=== PATIENT | female | born 1930 | race Caucasian/White ===

== ENCOUNTER 2017-06-24 15:56 | Inpatient (IN) | payer MEDICARE, OTHER ==
[~2017-06-24] VITALS: Ht 167.6 cm; Wt 75.8 kg
[2017-06-24] MEDS ORDERED: HCTZ 25MG TAB25 MG PO (16:35)
[2017-06-24] MEDS ORDERED: PLENDIL 5MG TAB5 MG PO (16:35)
[2017-06-24] MEDS ORDERED: LEXAPRO20 MG PO (16:36)
[2017-06-24] MEDS ORDERED: VITAMINC1000TA PO (16:38)
[2017-06-24] MEDS ORDERED: NATURAL E400 IU PO (16:39)
[2017-06-24] MEDS ORDERED: CALCIUM 600MG+D1 TAB PO (16:39)
[2017-06-24 16:43] LABS: BASO # 0.1 (0.0-0.2); BASO % 0.6 % (0.0-2.0); EOS # 0.1 (0.0-0.7); EOS % 0.7 % (0-4.0); GRAN # 8.9 (1.4-6.5); GRAN % 75.6 % (42.2-75.2); HEMATOCRIT 39.5 % (37.0-47.0); HEMOGLOBIN 13.2 g/dl (12.5-16.0); LYMPH # 2.1 (1.2-3.4); LYMPH % 17.7 % (20.0-51.0); MEAN CELL VOLUME 96 fl (80.0-100.0); MEAN CORPUSCULAR HEMOGLOBIN 32 pg (27.0-31.0); MEAN CORPUSCULAR HGB CONC 33 g/dl (33.0-37.0); MEAN PLATELET VOLUME 8.6 fl (7.4-10.4); MONO # 0.6 (0.1-0.6); MONO % 4.8 % (1.7-9.3); PLATELET COUNT 258 K/mm3 (130-400); RED BLOOD COUNT 4.13 M/mm3 (4.10-5.30); WHITE BLOOD COUNT 11.8 K/mm3 (4.8-10.8)
[2017-06-24 16:55] LABS: ADJUSTED CALCIUM 9.5 mg/dL (8.4-10.2); BILIRUBIN,TOTAL 0.4 mg/dL (0.0-1.0); CALCIUM 9.5 mg/dL (8.4-10.2); CREATININE, serum 0.65 mg/dL (0.52-1.25); INR 1.1 (0.8-3.0); POTASSIUM 4.4 mmol/L (3.4-5.0); PROTHROMBIN TIME 11.7 SECONDS (9.7-12.8); TOTAL PROTEIN 7.1 gm/dL (6.4-8.2)
[2017-06-24] MEDS ORDERED: MYSOLINE 5050 MG/TAB PO (17:42)
[2017-06-24] MEDS ORDERED: TOPROL XL 25MG25 MG PO (17:42)
[2017-06-24] MEDS ORDERED: LUTEIN20 M1 (17:43)
[2017-06-24] MEDS ORDERED: PHARMASSURE ZIN50 MG PO (17:44)
[2017-06-24] MEDS ORDERED: EPA FISH OIL1 SGL PO (17:44)
[2017-06-24 17:58] LABS: PH 5 (5-8); SQUAMOUS EPITHELIAL None Seen /hpf; URINE APPEARANCE Hazy; URINE BACTERIA Rare /hpf; URINE BILIRUBIN Negative (NEGATIVE); URINE BLOOD Negative (NEGATIVE); URINE COLOR Yellow; URINE GLUCOSE Negative (NEGATIVE); URINE KETONE Negative (NEGATIVE); URINE UROBILINOGEN Negative (NEGATIVE)
[2017-06-24 18:21] VITALS: BP 142/72; PULSE 50
[2017-06-24 20:00] VITALS: BP 100/64; PULSE 52; TEMP 97.4
[2017-06-25] VITALS (10 sets, daily range): BP systolic 101–128; BP diastolic 46–61; PULSE 51–66; TEMP 97.4–98.3
[2017-06-26 06:47] LABS: CALCIUM 8.7 mg/dL (8.4-10.2); CREATININE, serum 1.35 mg/dL (0.52-1.25); POTASSIUM 4.8 mmol/L (3.4-5.0)
[2017-06-26 06:50] LABS: HEMOGLOBIN 9.7 g/dl (12.5-16.0)
[2017-06-26 09:51] VITALS: BP 131/56; PULSE 87; TEMP 98.2
[2017-06-26 13:36] VITALS: BP 113/46; BP 13/46; PULSE 70; TEMP 97.6
[2017-06-26 17:42] VITALS: BP 142/64; PULSE 74; TEMP 98.1
[2017-06-26 21:29] VITALS: BP 140/54; PULSE 92; TEMP 97.8
[2017-06-27 06:20] VITALS: BP 114/53; PULSE 65; TEMP 97.9
[2017-06-27 14:25] VITALS: BP 114/53; PULSE 71; TEMP 98.2
[2017-06-27 17:28] VITALS: BP 177/65; PULSE 73; TEMP 97.6
[2017-06-27 19:37] VITALS: BP 148/62; PULSE 82; TEMP 98.3
[2017-06-28 02:54] VITALS: BP 138/71; PULSE 68; TEMP 98.6
[2017-06-28 10:14] VITALS: BP 131/57; PULSE 84; TEMP 97.6
[2017-06-28 11:15] LABS: CREATININE, serum 0.73 mg/dL (0.52-1.25); POTASSIUM 4.3 mmol/L (3.4-5.0)
[2017-06-28 11:27] LABS: PH 6 (5-8); SQUAMOUS EPITHELIAL 0-2 /hpf; URINE APPEARANCE Clear; URINE BACTERIA None Seen /hpf; URINE BILIRUBIN Negative (NEGATIVE); URINE BLOOD Negative (NEGATIVE); URINE COLOR Yellow; URINE GLUCOSE Negative (NEGATIVE); URINE KETONE Negative (NEGATIVE); URINE RBC 0-2 /hpf; URINE UROBILINOGEN Negative (NEGATIVE); URINE WBC 0-2 /hpf
[2017-06-28 13:55] VITALS: BP 133/43; PULSE 62; TEMP 97.9
[2017-06-28 17:04] VITALS: BP 159/56; PULSE 80; TEMP 98.2
[2017-06-28] MEDS ORDERED: AMBIEN 5MG TABLE5 MG PO (20:41)
[2017-06-28] MEDS ORDERED: NORCO 325 MG-51 TAB PO (20:42)
[2017-06-28] MEDS ORDERED: THERAGRAN TAB1 UDTAB PO (20:44)
[2017-06-28] MEDS ORDERED: VALIUM 2MG T2 MG/TAB PO (20:45)
[2017-06-28] MEDS ORDERED: ZOFRAN 4MG T4 MG/TAB PO (20:46)
[2017-06-28] MEDS ORDERED: FLOMAX 0.40.4 MG/CAP PO (20:47)
[2017-06-28] MEDS ORDERED: FERROUS SU325 MG/TAB PO (20:47)
[2017-06-28] MEDS ORDERED: RT ADVAIR HFA 1112 G IH (20:48)
[2017-06-28] MEDS ORDERED: IPRATROPIUM BROM3 M1 IH (20:49)
[2017-06-28] MEDS ORDERED: LOVENOX 4040 MG/0.4 SQ (20:50)
[2017-06-28] MEDS ORDERED: OSCAL 500 TAB500 MG PO (20:51)
[2017-06-28] MEDS ORDERED: PREDNISONE20 MG PO (20:52)
[2017-06-28] MEDS ORDERED: PROTONIX 40MG T40 MG PO (20:53)
== END 2017-06-28 18:00 | DRG 481 ==
LOC: COL.ER 15:56 → SURG 16:56
PROVIDERS: Emergency Medicine; Nurse Practitioner; Orthopaedic Surgery
PROC: 0QS706Z Reposition Left Upper Femur with Intramedullary Internal Fixation Device, Open Approach (ICD-10-PCS; principal; 2017-06-25 17:45)
DX: S72.142A Displaced intertrochanteric fracture of left femur, initial encounter for closed fracture (principal); E87.1 Hypo-osmolality and hyponatremia; I10 Essential (primary) hypertension; J44.9 Chronic obstructive pulmonary disease, unspecified; W01.0XXA Fall on same level from slipping, tripping and stumbling without subsequent striking against object, initial encounter; R33.9 Retention of urine, unspecified
CPT/HCPCS: 99222-AI; 99232-AI; 99233-AI; 99239; A9284; C1713; C1769; J0690; J1650; J2250; J2270; J2405; J2550; J2795; J3010; J7512

== ENCOUNTER 2017-06-28 12:22 | Inpatient (IN) | payer MEDICARE, OTHER ==
[~2017-06-28] VITALS: Ht 167.6 cm; Wt 74.3 kg
[~2017-06-28 12:22] MED LIST: CALCIUM 600MG+D1 TAB PO; EPA FISH OIL1 SGL PO; HCTZ 25MG TAB25 MG PO; LEXAPRO20 MG PO; LUTEIN20 M1; MYSOLINE 5050 MG/TAB PO; NATURAL E400 IU PO; PHARMASSURE ZIN50 MG PO; PLENDIL 5MG TAB5 MG PO; TOPROL XL 25MG25 MG PO; VITAMINC1000TA PO
[2017-06-28 18:55] VITALS: BP 119/41; PULSE 83; TEMP 98.2
[2017-06-28] MEDS ORDERED: AMBIEN 5MG TABLE5 MG PO (20:41)
[2017-06-28] MEDS ORDERED: NORCO 325 MG-51 TAB PO (20:42)
[2017-06-28] MEDS ORDERED: THERAGRAN TAB1 UDTAB PO (20:44)
[2017-06-28] MEDS ORDERED: VALIUM 2MG T2 MG/TAB PO (20:45)
[2017-06-28] MEDS ORDERED: ZOFRAN 4MG T4 MG/TAB PO (20:46)
[2017-06-28] MEDS ORDERED: FERROUS SU325 MG/TAB PO (20:47)
[2017-06-28] MEDS ORDERED: FLOMAX 0.40.4 MG/CAP PO (20:47)
[2017-06-28] MEDS ORDERED: RT ADVAIR HFA 1112 G IH (20:48)
[2017-06-28] MEDS ORDERED: IPRATROPIUM BROM3 M1 IH (20:49)
[2017-06-28] MEDS ORDERED: LOVENOX 4040 MG/0.4 SQ (20:50)
[2017-06-28] MEDS ORDERED: OSCAL 500 TAB500 MG PO (20:51)
[2017-06-28] MEDS ORDERED: PREDNISONE20 MG PO (20:52)
[2017-06-28] MEDS ORDERED: PROTONIX 40MG T40 MG PO (20:53)
[2017-06-29 03:39] VITALS: BP 165/68; PULSE 81; TEMP 98.1
[2017-06-29 15:55] VITALS: BP 177/72; PULSE 80; TEMP 97.2
[2017-06-30] VITALS (7 sets, daily range): BP systolic 133–172; BP diastolic 51–88; PULSE 60–104; TEMP 97.3–98.1
[2017-06-30 05:21] LABS: MEAN CELL VOLUME 95 fl (80.0-100.0); MEAN CORPUSCULAR HGB CONC 34 g/dl (33.0-37.0); PLATELET COUNT 247 K/mm3 (130-400); REDCELL DISTRIBUTION WIDTH-CV 13.1 % (11.5-14.5); WHITE BLOOD COUNT 7.4 K/mm3 (4.8-10.8)
[2017-06-30 05:24] LABS: ADD PATHOLOGY DIFF REVIEW NO; HEMATOCRIT 24.7 % (37.0-47.0); HEMOGLOBIN 8.3 g/dl (12.5-16.0); MEAN CORPUSCULAR HEMOGLOBIN 32 pg (27.0-31.0)
[2017-06-30 05:32] LABS: ADJUSTED CALCIUM 9.7 mg/dL (8.4-10.2); ALANINE AMINOTRANSFERASE 27 U/L (9-52); ALBUMIN 3.2 gm/dL (3.5-5.0); ALKALINE PHOSPHATASE 61 U/L (50-136); ANION GAP 7 mmol/L (7-16); BILIRUBIN,TOTAL 1.2 mg/dL (0.0-1.0); BLOOD UREA NITROGEN 18 mg/dL (7-17); CALCIUM 9.1 mg/dL (8.4-10.2); CARBON DIOXIDE 27 mmol/L (22-30); CHLORIDE 91 mmol/L (98-107); CREATININE, serum 0.62 mg/dL (0.52-1.25); GLUCOSE 108 mg/dL (74-106); MAGNESIUM 1.8 mg/dL (1.6-2.3); PHOSPHOROUS 3.8 mg/dL (2.5-4.5); POTASSIUM 4.2 mmol/L (3.4-5.0); SODIUM 125 mmol/L (137-145); TOTAL PROTEIN 6.1 gm/dL (6.4-8.2)
[2017-06-30 05:44] LABS: B-TYPE NATRIURETIC PEPTIDE 4480 pg/mL (0-450)
[2017-06-30 05:45] LABS: TROPONIN-I < 0.012 ng/mL (0.000-0.034)
[2017-06-30 06:06] LABS: ANISOCYTOSIS 1+; BAND 4 % (0-10); EOSINOPHIL 2 % (0-4); HYPOCHROMIA 2+; METAMYELOCYTE 3 % (0-0); NEUTROPHILS 71 % (42.0-75.2); POLYCHROMASIA 1+; ROULEAUX 1+; STOMATOCYTE 1+; TOTAL CELLS COUNTED 100
[2017-06-30 06:07] LABS: POIKILOCYTOSIS 1+
[2017-06-30 23:02] LABS: PH 5 (5-8); SQUAMOUS EPITHELIAL 0-2 /hpf; URINE APPEARANCE Hazy; URINE BACTERIA Occasional /hpf; URINE BILIRUBIN Negative (NEGATIVE); URINE BLOOD Negative (NEGATIVE); URINE COLOR Yellow; URINE GLUCOSE Negative (NEGATIVE); URINE KETONE Negative (NEGATIVE); URINE UROBILINOGEN Negative (NEGATIVE)
[2017-06-30 23:04] LABS: URINE WBC >50 /hpf
[2017-07-01 00:39] VITALS: BP 163/72; PULSE 66; TEMP 97.6
[2017-07-01 04:03] VITALS: BP 136/57; PULSE 75; TEMP 98.2
[2017-07-01 06:37] LABS: HEMATOCRIT 25.8 % (37.0-47.0); HEMOGLOBIN 8.7 g/dl (12.5-16.0)
[2017-07-01 06:50] LABS: CREATININE, serum 0.65 mg/dL (0.52-1.25); MAGNESIUM 1.6 mg/dL (1.6-2.3); POTASSIUM 4.2 mmol/L (3.4-5.0)
[2017-07-01 10:00] VITALS: BP 148/69; PULSE 70; TEMP 96.5
[2017-07-01 16:30] VITALS: BP 141/67; PULSE 73; TEMP 97.3
[2017-07-01 18:55] LABS: CREATININE, serum 0.72 mg/dL (0.52-1.25); POTASSIUM 4.8 mmol/L (3.4-5.0)
[2017-07-01 21:05] VITALS: BP 128/61; PULSE 92; TEMP 97.2
[2017-07-01 23:40] VITALS: BP 145/65; PULSE 84; TEMP 98.3
[2017-07-02 04:08] VITALS: BP 153/69; PULSE 97; TEMP 98.3
[2017-07-02 05:46] LABS: CREATININE, serum 0.73 mg/dL (0.52-1.25); MAGNESIUM 1.9 mg/dL (1.6-2.3); POTASSIUM 4.6 mmol/L (3.4-5.0)
[2017-07-02 08:28] VITALS: BP 134/56; PULSE 100; TEMP 98
[2017-07-02 12:18] VITALS: BP 105/66; PULSE 81; TEMP 98.1
[2017-07-02 16:03] VITALS: BP 135/59; PULSE 91; TEMP 98.1
[2017-07-02 22:00] VITALS: BP 141/61; PULSE 77; TEMP 97.9
[2017-07-02 23:46] VITALS: BP 141/61; PULSE 77; TEMP 97.9
[2017-07-03 04:50] VITALS: BP 157/69; PULSE 86; TEMP 97.4
[2017-07-03 07:55] VITALS: BP 144/54; PULSE 81; TEMP 97.8
[2017-07-03 12:30] VITALS: BP 124/59; PULSE 79; TEMP 97.9
[2017-07-03 16:08] VITALS: BP 115/49; PULSE 92; TEMP 97.5
[2017-07-04 05:33] VITALS: BP 167/78; PULSE 90; TEMP 97.8
[2017-07-04 17:00] VITALS: BP 127/64; PULSE 85; TEMP 97.7
[2017-07-05 04:12] VITALS: BP 155/65; PULSE 77; TEMP 98.3
[2017-07-05 07:04] LABS: CALCIUM 8.8 mg/dL (8.4-10.2); CREATININE, serum 0.69 mg/dL (0.52-1.25); MAGNESIUM 2.3 mg/dL (1.6-2.3); POTASSIUM 4.8 mmol/L (3.4-5.0)
[2017-07-05 16:23] VITALS: BP 126/99; PULSE 88; TEMP 97.8
[2017-07-06 06:10] VITALS: BP 154/88; PULSE 77; TEMP 97.7
[2017-07-06 16:05] VITALS: BP 115/55; PULSE 84; TEMP 98.6
[2017-07-07 06:13] VITALS: BP 149/61; PULSE 80; TEMP 98.5
[2017-07-07 16:41] VITALS: BP 127/49; PULSE 87; TEMP 98.3
[2017-07-08 06:08] VITALS: BP 148/65; PULSE 80; TEMP 98.3
[2017-07-08 08:33] LABS: MEAN CELL VOLUME 104 fl (80.0-100.0); MEAN CORPUSCULAR HGB CONC 32 g/dl (33.0-37.0); MEAN PLATELET VOLUME 8.4 fl (7.4-10.4); PLATELET COUNT 411 K/mm3 (130-400); RED BLOOD COUNT 2.71 M/mm3 (4.10-5.30); REDCELL DISTRIBUTION WIDTH-CV 16.8 % (11.5-14.5); WHITE BLOOD COUNT 7.5 K/mm3 (4.8-10.8)
[2017-07-08 08:37] LABS: CALCIUM 9.5 mg/dL (8.4-10.2); CREATININE, serum 0.74 mg/dL (0.52-1.25); POTASSIUM 4.4 mmol/L (3.4-5.0)
[2017-07-08 08:40] LABS: HEMATOCRIT 28.1 % (37.0-47.0); HEMOGLOBIN 8.9 g/dl (12.5-16.0); MEAN CORPUSCULAR HEMOGLOBIN 33 pg (27.0-31.0)
[2017-07-08 08:41] LABS: ADD PATHOLOGY DIFF REVIEW NO
[2017-07-08 09:31] LABS: BAND 9 % (0-10); EOSINOPHIL 1 % (0-4); NEUTROPHILS 64 % (42.0-75.2); PLATELET ESTIMATE NORMAL (NORMAL); POLYCHROMASIA 1+; TOTAL CELLS COUNTED 100
[2017-07-08 17:36] VITALS: BP 142/59; PULSE 85; TEMP 97.3
[2017-07-09 04:34] VITALS: BP 134/54; PULSE 73; TEMP 96.8
[2017-07-09 18:53] VITALS: BP 119/65; PULSE 90; TEMP 98.6
[2017-07-10 03:37] VITALS: BP 141/63; PULSE 79; TEMP 97.2
[2017-07-10 09:33] LABS: MEAN CELL VOLUME 107 fl (80.0-100.0); MEAN CORPUSCULAR HGB CONC 31 g/dl (33.0-37.0); MEAN PLATELET VOLUME 8.5 fl (7.4-10.4); PLATELET COUNT 453 K/mm3 (130-400); RED BLOOD COUNT 2.83 M/mm3 (4.10-5.30); REDCELL DISTRIBUTION WIDTH-CV 17.6 % (11.5-14.5); WHITE BLOOD COUNT 8.3 K/mm3 (4.8-10.8)
[2017-07-10 09:39] LABS: ADD PATHOLOGY DIFF REVIEW NO; HEMATOCRIT 30.3 % (37.0-47.0); HEMOGLOBIN 9.4 g/dl (12.5-16.0); MEAN CORPUSCULAR HEMOGLOBIN 33 pg (27.0-31.0)
[2017-07-10 09:52] LABS: CALCIUM 9.4 mg/dL (8.4-10.2); CREATININE, serum 0.73 mg/dL (0.52-1.25); POTASSIUM 3.8 mmol/L (3.4-5.0)
[2017-07-10 10:12] LABS: ANISOCYTOSIS 1+; BAND 9 % (0-10); NEUTROPHILS 71 % (42.0-75.2); PLATELET ESTIMATE NORMAL (NORMAL); TOTAL CELLS COUNTED 100
[2017-07-10 16:25] VITALS: BP 115/58; PULSE 83; TEMP 97.7
[2017-07-11 05:22] VITALS: BP 133/69; PULSE 80; TEMP 97.3
[2017-07-11 17:05] VITALS: BP 136/91; PULSE 89; TEMP 97.6
[2017-07-12 05:00] VITALS: BP 147/69; PULSE 83; TEMP 98.3
[2017-07-12 17:30] VITALS: BP 130/74; PULSE 86; TEMP 98.1
[2017-07-13 04:58] VITALS: BP 136/56; PULSE 76; TEMP 97.7
[2017-07-13 17:01] VITALS: BP 127/70; PULSE 84; TEMP 97.6
[2017-07-14 06:49] VITALS: BP 146/62; PULSE 70; TEMP 98.5
[2017-07-14 16:30] VITALS: BP 123/61; PULSE 83; TEMP 98.4
[2017-07-15 04:35] VITALS: BP 149/70; PULSE 75; TEMP 98.1
[2017-07-15 08:07] LABS: CALCIUM 9.8 mg/dL (8.4-10.2); CREATININE, serum 0.74 mg/dL (0.52-1.25)
[2017-07-15 17:27] VITALS: BP 110/79; PULSE 97; TEMP 97
[2017-07-15 17:29] LABS: PH 5 (5-8); SQUAMOUS EPITHELIAL 0-2 /hpf; URINE APPEARANCE Hazy; URINE BACTERIA Rare /hpf; URINE BILIRUBIN Negative (NEGATIVE); URINE BLOOD Negative (NEGATIVE); URINE COLOR Yellow; URINE GLUCOSE Negative (NEGATIVE); URINE KETONE Negative (NEGATIVE); URINE RBC 0-2 /hpf; URINE UROBILINOGEN Negative (NEGATIVE)
[2017-07-15 17:38] LABS: URINE WBC 20-50 /hpf
[2017-07-15 22:16] LABS: BASO # 0.1 (0.0-0.2); BASO % 1.1 % (0.0-2.0); EOS # 0.1 (0.0-0.7); GRAN # 3.2 (1.4-6.5); GRAN % 69.5 % (42.2-75.2); LYMPH # 0.9 (1.2-3.4); LYMPH % 20.1 % (20.0-51.0); MEAN CORPUSCULAR HGB CONC 30 g/dl (33.0-37.0); MONO # 0.3 (0.1-0.6); MONO % 6.6 % (1.7-9.3); PLATELET COUNT 397 K/mm3 (130-400); REDCELL DISTRIBUTION WIDTH-CV 18.7 % (11.5-14.5); WHITE BLOOD COUNT 4.6 K/mm3 (4.8-10.8)
[2017-07-15 22:18] LABS: HEMATOCRIT 35.7 % (37.0-47.0); HEMOGLOBIN 10.7 g/dl (12.5-16.0); MEAN CELL VOLUME 112 fl (80.0-100.0); MEAN CORPUSCULAR HEMOGLOBIN 33 pg (27.0-31.0)
[2017-07-16 04:57] VITALS: BP 138/65; PULSE 78; TEMP 97.3
[2017-07-16] MEDS ORDERED: OMNICEF 300MG300 MG PO (08:37)
[2017-07-16] MEDS ORDERED: PROAIR HFA0.09 MG/AC IH (08:38)
[2017-07-16] MEDS ORDERED: FERROUS SU325 MG/TAB PO (08:39)
[2017-07-16] MEDS ORDERED: LOPRESSOR 225 MG/TAB PO (08:40)
[2017-07-16] MEDS ORDERED: TYLENOL 325MG325 MG PO (08:41)
[2017-07-16] MEDS ORDERED: MIRAPEX 0.0.125 MG/T PO (08:42)
[2017-07-16] MEDS ORDERED: LASIX 20MG TABL20 MG PO (08:43)
[2017-07-16] MEDS ORDERED: ANTACID500 M1 PO (08:43)
[2017-07-16] MEDS ORDERED: MAG-OX 400400 MG/TAB PO (08:44)
[2017-07-16] MEDS ORDERED: NYSTATIN POWDER30 GM TOP (08:46)
[2017-07-16] MEDS ORDERED: AMBIEN 5MG TABLE5 MG PO (08:47)
[2017-07-16] MEDS ORDERED: PREDNISONE20 MG PO (08:51)
== END 2017-07-16 12:45 | disposition home or self-care (01) | DRG 560 ==
PROVIDERS: Internal Medicine; Nurse Practitioner; Nurse Practitioner Family
DX: S72.142D Displaced intertrochanteric fracture of left femur, subsequent encounter for closed fracture with routine healing (principal); E87.1 Hypo-osmolality and hyponatremia; N39.0 Urinary tract infection, site not specified; W18.30XD Fall on same level, unspecified, subsequent encounter; I10 Essential (primary) hypertension; J44.9 Chronic obstructive pulmonary disease, unspecified; R00.8 Other abnormalities of heart beat; I49.3 Ventricular premature depolarization; D64.9 Anemia, unspecified; I27.2 Other secondary pulmonary hypertension; I08.1 Rheumatic disorders of both mitral and tricuspid valves; R33.9 Retention of urine, unspecified; R07.9 Chest pain, unspecified
CPT/HCPCS: 99222-AI; 99232-AI; 99233-AI; 99239; J0696; J1650; J7131; J7512